=== PATIENT | male | born 1975 | race Caucasian/White ===

== ENCOUNTER 2025-01-31 09:48 | Emergency (ER) | payer OTHER, SELFPAY ==
[2025-01-31] VITALS (8 sets, daily range): BP systolic 134–172; BP diastolic 85–104
[2025-01-31] MEDS: ASPIRIN 325 MG PO (10:22)
[2025-01-31 10:36] LABS: Hematocrit 42.6 % (39.0-52.0); Hemoglobin 15.1 g/dL (13.0-18.0); Mean Corp Hgb Conc. 35.4 g/dL (33.0-37.0); Mean Corpuscular Volume 87.5 fL (80.0-94.0); Nucleated Red Blood Cells % 0 % (-); Platelet Count 157 10^3/uL (130-400); Red Cell Dist. Width 13.0 % (11.5-14.5)
[2025-01-31 10:51] LABS: D-Dimer < 0.27 ug/mlFEU (0.00-0.50)
[2025-01-31 10:54] LABS: ALT (SGPT) 44 U/L (0-50); AST (SGOT) 32 U/L (17-59); Albumin 4.5 g/dl (3.5-5.0); Alkaline Phosphatase 72 U/L (38-126); Blood Urea Nitrogen 11 mg/dl (9-20); Calcium 9.2 mg/dl (8.4-10.2); Carbon Dioxide 26 mmol/L (22-30); Chloride 108 mmol/L (98-107); Glucose 117 mg/dl (70-99); Lipase 131 U/L (23-300); Magnesium 1.8 mg/dl (1.6-2.3); Potassium 4.3 mmol/L (3.5-5.1); Sodium 139 mmol/L (135-145); Total Protein 6.4 g/dl (6.3-8.2); eGFR > 60.00
[2025-01-31 11:06] LABS: Troponin I < 0.012 ng/ml
[2025-01-31] MEDS: TYLENOL 1000 MG PO (12:11)
--- NOTE | 2025-01-31 14:20 | ED.GENMED ---
History of Present Illness
General
Chief Complaint: Cardiac Symptoms
Source: patient
Exam Limitations: none
Time Seen by Provider: 01/31/25 10:00
Nursing documentation reviewed up to this point in time: agreed with
History of Present Illness
History of Present Illness:
49-year-old male past ministry of hypertension hyperlipidemia presenting to the emergency department today with concerns of chest discomfort 50 minutes prior to arrival also has been having some sensations of palpitations over the past month. This
morning the pain is a central left-sided pressure without specific radiation no significant ongoing shortness of breath nausea vomiting or diaphoresis.
Past History
Past History
ED Past Medical History: Other (arthritis)
ED Past Surgical History: Orthopedic (Right calcaneal surgery)
Social History
Tobacco: Non-smoker
Alcohol: None
Drug: None
Personal:
Living: with family
Review of Systems
Review of Systems
Allergies reviewed?: Yes
All Other Systems: ROS reviewed and negative except as documented in HPI and ROS
Phy Exam
Physical Exam
Physical Exam:
GENERAL: Alert , in no apparent distress
EYE: pupils equal and reactive
NECK: Supple, no significant adenopathy.
ENT: o/p clr, mmm.
CARDIAC: Regular rate and rhythm .
LUNGS: Clear breath sounds bilaterally, no acute respiratory distress, no wheezes/rales/rhonchi
ABDOMEN: Soft, without focal tenderness, no r/g, no cvat
NEUROLOGICAL: Alert and oriented, no focal neuro deficits
SKIN: Warm and dry, skin intact.
MUSCULOSKELETAL: No edema, well perfused.
PSYCH: Normal and appropriate interaction.
Course
Orders/Labs/Results
Orders:
Orders
01/31/25 09:50
ECG [Electrocardiogram (*1)] Urgent
Reason for Study: Chest Pain
01/31/25 09:51
EKG- Treatment ONCE
01/31/25 10:12
Cardiac Monitoring- Treatment ONCE
Aspirin 325 mg PO NOW STA
01/31/25 10:13
CR Chest - 2 Views Urgent
Comment:
Reason For Exam: left CP
01/31/25 10:26
Complete Blood Count/With Diff Urgent
Comprehensive Metabolic Panel Urgent
D-Dimer Urgent
Lipase Urgent
Magnesium Urgent
NT-proBNP Urgent
Troponin I Urgent
01/31/25 12:07
Acetaminophen [Tylenol] 1,000 mg PO NOW STA
01/31/25 13:15
Electrocardiogram (*1) Urgent
Reason for Study: Chest Pain
EKG- Treatment ONCE
01/31/25 13:46
Troponin I Urgent
Abnormal Lab Results
01/31/25
10:26
Chloride 108 H mmol/L
(98-107)
Glucose 117 H mg/dl
(70-99)
01/31/25 10:26
01/31/25 10:26
Vital Signs
Initial and Last Documented VS:
Initial Vital Signs
Temp Pulse Resp BP Pulse Ox
98.6 F 91 16 172/100 98
01/31/25 09:55 01/31/25 09:55 01/31/25 09:55 01/31/25 09:55 01/31/25 09:55
Last Documented Vital Signs
Temp Pulse Resp BP Pulse Ox
98.6 F 69 17 159/92 96
01/31/25 09:55 01/31/25 15:00 01/31/25 15:00 01/31/25 14:33 01/31/25 15:00
MDM/Problems Addressed
MDM/Problems Addressed:
49-year-old male presenting to the emergency department today with concerns of chest pain left-sided chest pressure. On arrival hypertensive otherwise vital signs are normal. Blood pressure improving without specific treatment here. Labs
unremarkable D-dimer negative troponin negative BNP negative EKG without emergent or ischemic findings chest x-ray normal. Second troponin EKG negative and unchanged. Patient no distress here. Workup without evidence of emergent process advised
for close cardiology follow-up. Return precautions given.
*Pulse Oximetry
SaO2: 99
Oxygen Mode of Delivery: Room air
Patient hypoxic: no (96)
*Critical Care Note
Total Time (30-74mins, 75-104mins- exclusive of procedures): Not Applicable
ED Attending Note
-
Portions of this chart may have been created with voice recognition software.� Occasional wrong word or��sound alike� substitutions may have occurred due to the inherent limitations of voice recognition software.
Discharge Plan
Departure
Patient Disposition: Home (Routine Discharge)
Date of Disposition: 01/31/25
Time of Disposition: 15:04
Patient with high blood pressure during this ER visit?: No
Condition: Good
Covid-19: Not Applicable
Discharge Problem:
Chest pain
Instructions: Chest Pain CBC Follow Up
Prescriptions:
No Action
fluticasone propionate 1 SPRAY spray,suspension
0 spray intranasal DAILY
bupropion HCl 300 MG tablet extended release 24 hr
300 mg PO DAILY
fish oil-dha-epa 1 EACH capsule
1 cap PO DAILY
magnesium oxide 500 MG capsule
500 mg PO DAILY
Besonide Cream .05%
topical DAILY
Patient Comments:
Uses for razor burn/acne
Clindamycin Phosphate:
topical DAILY
Patient Comments:
Uses for razor burn
Depakote ER (Extended Release):
1,250 mg PO DAILY
Patient Comments:
250 mg 03/23 at 7 am, 1000 mg 03/22 evening
Ibuprofen
2 tab PO PRN PRN (Reason: pain)
Multivitamin
1 tab PO DAILY
oxycodone 5 MG tablet
5 mg PO Q4HPRN PRN (Reason: breakthrough/severe pain) Qty: 10 0RF
Patient Comments:
for post op
Referrals:
Joey Alvarado PA-C [Family Provider, Family Practice]
Activity Restrictions/Additional Instructions:
You came to the emergency department today with concerns of chest pain. Here you have a reassuring assessment. Please follow closely with cardiology. Return for any worsening, new or concerning symptoms.
Interventions
Interventions:
*Risk Screen - Suicide Last Done: 01/31/25 09:55
*Neglect/Abuse Screening Last Done: 01/31/25 09:55
ED- Pulmonary Assessment Last Done: 01/31/25 10:30
ED- Cardiac Assessment Last Done: 01/31/25 10:30
Discharge Date and Time
Print Language: [id number]
[2025-01-31 14:27] LABS: Troponin I < 0.012 ng/ml
== END 2025-01-31 15:35 | disposition home or self-care (01) ==
LOC: EMR 09:48
PROVIDERS: Physician Assistant; EMERGENCY PHYSICIAN Student in an Organized Health Care Education/Training Program; FAMILY PHYSICIAN Physician Assistant Medical
DX: R07.9 Chest pain, unspecified (principal); I10 Essential (primary) hypertension; E78.5 Hyperlipidemia, unspecified; M19.90 Unspecified osteoarthritis, unspecified site
CPT/HCPCS: 99284; 71046; 80053; 83690; 83735; 83880; 84484; 85025; 85379; 93005

== ENCOUNTER → 2025-02-11 09:15 | Outpatient (REF) | payer OTHER, SELFPAY | LOC: RCS 09:15 | PROVIDERS: ATTENDING PHYSICIAN Internal Medicine Cardiovascular Disease; FAMILY PHYSICIAN Physician Assistant Medical | DX: R00.2 Palpitations (principal) | CPT/HCPCS: 93225; 93226 ==

== ENCOUNTER → 2025-02-28 07:52 | Outpatient (REF) | payer OTHER, SELFPAY | LOC: HWRCS 07:52 | PROVIDERS: ATTENDING PHYSICIAN Internal Medicine Cardiovascular Disease; FAMILY PHYSICIAN Physician Assistant Medical | DX: R00.2 Palpitations (principal) | CPT/HCPCS: 78452; 93017; A9500 ==

== ENCOUNTER → 2025-03-11 08:06 | Outpatient (REF) | payer OTHER, SELFPAY | LOC: RCS 08:06 | PROVIDERS: ATTENDING PHYSICIAN Internal Medicine Cardiovascular Disease; FAMILY PHYSICIAN Physician Assistant Medical | DX: R00.2 Palpitations (principal) | CPT/HCPCS: 93306 ==

== ENCOUNTER → 2025-03-13 07:19 | Outpatient (REF) | payer OTHER, SELFPAY | LOC: HWRAD 07:19 | PROVIDERS: ATTENDING PHYSICIAN Physician Assistant Medical | DX: R10.11 Right upper quadrant pain (principal) | CPT/HCPCS: 76700 ==